=== PATIENT | female | born 1970 | race Caucasian/White ===

== ENCOUNTER 2017-06-23 18:53 | Emergency (ER) | payer MEDICARE ==
[~2017-06-23] VITALS: Ht 160 cm; Wt 76.0 kg
[2017-06-23] MEDS ORDERED: HYDROmorphone 1 MG/ML, 1ML IV ONE ×2 (19:30→21:00)
[2017-06-23] MEDS ORDERED: ONDANSETRON 2MG/ML, 2ML IVPush ONE (19:30)
[2017-06-23] MEDS ORDERED: HYDROmorphone 1 MG/ML, 1ML ONE ×2 (19:54→20:54)
[2017-06-23] MEDS ORDERED: ONDANSETRON 2MG/ML, 2ML ONE (19:55)
[2017-06-23] MEDS ORDERED: PROPOFOL 10 MG/ML, 20ML ONE (19:59)
[2017-06-23] MEDS ORDERED: CEFAZOLIN PMX 1GM/50ML 50 ML ONE (20:47)
[2017-06-23 20:51] VITALS: BP 106/75
[2017-06-23] MEDS ORDERED: CEFAZOLIN PMX 1GM/50ML 50 ML IV ONE (21:00)
[2017-06-23] MEDS ORDERED: PROPOFOL 10 MG/ML, 20ML IVPush ONE (21:30)
== END 2017-06-23 22:56 | disposition home or self-care (01) ==
LOC: ED 22:36
DX: S52.591A Other fractures of lower end of right radius, initial encounter for closed fracture (principal); G43.909 Migraine, unspecified, not intractable, without status migrainosus; W19.XXXA Unspecified fall, initial encounter; Y93.51 Activity, roller skating (inline) and skateboarding; Y92.89 Other specified places as the place of occurrence of the external cause; Y99.8 Other external cause status
CPT/HCPCS: 25605; 73100; 96365; 96375; 96376; 99152; 99153; 99285; J0690; J1170; J2405; J2704